=== PATIENT | male | born 1955 | race Caucasian/White ===

== ENCOUNTER 2018-05-16 21:20 | Emergency (ER) | payer OTHER ==
[2018-05-16] MEDS ORDERED: TRANDATE 20 MG/5 ML SYRINGE IV ONE ×2 (21:52→22:02)
--- NOTE | 2018-05-16 21:52 | ERPHSYRPT ---
- History of Present Illness Time Seen by Provider: 05/16/18 21:51 Source: patient Exam Limitations: no limitations Patient Subjective Stated Complaint: pt reports high blood pressure, states this evening it read 188/98. pt reports headache as well. pt denies pain. pt also reports some burning with urination for approx one week. Triage Nursing Assessment: pt is aox3, pupils perrl, afebrile, resps easy and non labored, radial pulses strong and equal, pt transfers to cot with slow gait , generalized pain to the head that is dull in nature. cap refill < 3 seconds, pt skin pink warm dry. slight edema noted to the LLE, non pitting. Physician History: pt reports high blood pressure, states this evening it read 188/98. pt reports headache as well. pt denies pain. pt also reports some burning with urination for approx one week. generalized pain to the head that is dull in nature Timing/Duration: day(s) Activities at Onset: none Nitro Today/Relief: no nitro taken today Aspirin Treatment Today: no aspirin today Associated Symptoms: headaches Prior Chest Pain/Cardiac Workup: recently seen/treated (by digital marketing consultant, lisinopril was added.) Allergies/Adverse Reactions: Sulfa (Sulfonamide Antibiotics) Allergy (Intermediate, Verified 05/16/18 21:39) Hives Home Medications: Amiodarone HCl 200 mg [Cordarone 200 MG] 200 mg PO BID 04/18/16 [History] Aspirin 81 gm Chew [Baby Aspirin 81 mg Chew] 81 mg PO DAILY 04/18/16 [ History] Atorvastatin Calcium [Lipitor] 80 mg PO DAILY 04/18/16 [History] Bumetanide 1 mg [Bumex 1 mg] 1 mg PO BID 04/18/16 [History] Ferrous Sulfate 325 mg [Feosol 325 mg] 325 mg PO BID 04/18/16 [History] Metolazone 2.5 mg [Zaroxolyn 2.5 MG] 2.5 mg PO UD 04/18/16 [History] Metoprolol Succinate [Toprol Xl] 50 mg PO BID 04/18/16 [History] Omeprazole 20 MG [Prilosec 20 mg] 20 mg PO DAILY 04/18/16 [History] Potassium Chloride 10 Meq Tab* [Klor Con 10 MEQ] 10 meq PO BID 04/18/16 [ History] Warfarin Sodium 2 mg [Coumadin 2 MG] 2 mg PO UD 04/18/16 [History] Hx Tetanus, Diphtheria Vaccination/Date Given: Yes Hx Influenza Vaccination/Date Given: Yes Hx Pneumococcal Vaccination/Date Given: No Immunizations Up to Date: Yes - Review of Systems Constitutional: No Fever, No Chills Eyes: No Symptoms Ears, Nose, & Throat: No Symptoms Respiratory: No Cough, No Dyspnea Cardiac: No Chest Pain, No Edema, No Syncope Abdominal/Gastrointestinal: No Abdominal Pain, No Nausea, No Vomiting, No Diarrhea Genitourinary Symptoms: No Dysuria Musculoskeletal: No Back Pain, No Neck Pain Skin: No Rash Neurological: Headache, No Dizziness, No Focal Weakness, No Sensory Changes Psychological: No Symptoms Endocrine: No Symptoms All Other Systems: Reviewed and Negative - Past Medical History Pertinent Past Medical History: Yes Cardiac History: Arrhythmia, Coronary Artery Disease, Hypertension, Myocardial Infarction (AR) Endocrine Medical History: No Pertinent History Musculoskeletal History: Osteoarthritis GI Medical History: Other - Past Surgical History Past Surgical History: Yes Cardiac: CABG Other Surgical History: tonsillectomy - Social History Smoking Status: Former smoker Exposure to second hand smoke: No Drug Use: none Patient Lives Alone: Yes - Nursing Vital Signs Nursing Vital Signs: Initial Vital Signs Temperature 98.4 F 05/16/18 21:26 Pulse Rate 63 05/16/18 21:26 Respiratory Rate 20 05/16/18 21:26 Blood Pressure 191/77 05/16/18 21:26 O2 Sat by Pulse Oximetry 99 05/16/18 21:26 Pain Scale Pain Intensity 4 - Physical Exam General Appearance: no apparent distress, alert Eye Exam: PERRL/EOMI, eyes nml inspection Ears, Nose, Throat Exam: normal ENT inspection, moist mucous membranes Neck Exam: normal inspection, non-tender, supple Respiratory Exam: normal breath sounds, lungs clear, No respiratory distress Cardiovascular Exam: regular rate/rhythm, normal heart sounds, No edema Gastrointestinal/Abdomen Exam: soft, No tenderness, No mass Back Exam: normal inspection, No CVA tenderness, No vertebral tenderness Extremity Exam: normal inspection, normal range of motion Neurologic Exam: alert, oriented x 3, cooperative, normal mood/affect, sensation nml, No motor deficits, No sensory deficit Skin Exam: normal color, warm, dry Lymphatic Exam: No adenopathy SpO2: 99 - Course Nursing assessment & vital signs reviewed: Yes EKG Interpreted by Me: Right Bundle Branch Block - Radiology Exams Chest X-ray Interpretation: Reviewed by me Ordered Tests: Active Orders 24 hr Category Date Time Status Medical Director/Head Team Physician STAT Care 05/16/18 21:53 Active EKG-ER Only STAT Care 05/16/18 21:40 Active IV Insertion STAT Care 05/16/18 21:40 Active CMP Stat Lab 05/16/18 21:30 Completed NT PRO BNP Stat Lab 05/16/18 21:30 Completed PROTIME WITH INR Stat Lab 05/16/18 21:30 Completed TROPONIN Q3H Lab 05/16/18 21:30 Completed TROPONIN Q3H Lab 05/17/18 01:00 Ordered TROPONIN Q3H Lab 05/17/18 04:00 Ordered TROPONIN Q3H Lab 05/17/18 07:00 Ordered TROPONIN Q3H Lab 05/17/18 10:00 Ordered UA W/RFX UR CULTURE Stat Lab 05/16/18 23:35 Completed Medication Summary Generic Name Dose Route Start Last Admin Trade Name Freq PRN Reason Stop Dose Admin Sodium Chloride 1,000 mls @ 50 mls/hr 05/16/18 22:00 05/16/18 22:05 Sodium Chloride 0.9% 1000 Ml IV 06/15/18 21:59 50 mls/hr .Q20H WINNIE Administration Discontinued Medications Generic Name Dose Route Start Last Admin Trade Name Freq PRN Reason Stop Dose Admin Labetalol HCl 10 mg 05/16/18 21:52 05/16/18 23:24 Trandate 20 Mg/5 Ml Syringe IV 05/16/18 21:53 10 mg STAT ONE Administration Labetalol HCl Confirm 05/16/18 22:02 Trandate 20 Mg/5 Ml Syringe Administered 05/16/18 22:03 Dose 20 mg IV .STK-MED ONE Lab/Rad Data: Laboratory Result Diagrams 05/16/18 21:30 Laboratory Results 05/16/18 05/16/18 05/16/18 Range/Units 23:35 21:30 21:30 PT 20.9 H (8.83-12.87) SECONDS INR 1.79 (0.8-3.0) Sodium (137-145) mmol/L Potassium (3.5-5.1) mmol/L Chloride (98-107) mmol/L Carbon Dioxide (22-30) mmol/L Anion Gap (5-15) MEQ/L BUN (9-20) mg/dL Creatinine (0.66-1.25) mg/dL Estimated GFR ML/MIN Glucose (74-106) mg/dL Calcium (8.4-10.2) mg/dL Total Bilirubin (0.2-1.3) mg/dL AST (17-59) U/L ALT (0-50) U/L Alkaline Phosphatase (38-126) U/L Troponin I < 0.012 (0.000-0.034) ng/mL NT-Pro-B Natriuret Pep (0-900) pg/mL Serum Total Protein (6.3-8.2) g/dL Albumin (3.5-5.0) g/dL Urine Color STRAW (YELLOW) Urine Appearance CLEAR (CLEAR) Urine pH 6.0 (5-6) Ur Specific [place] 1.004 (1.005-1.025) Urine Protein NEGATIVE (Negative) Urine Ketones TRACE (NEGATIVE) Urine Blood NEGATIVE (0-5) Oc/ul Urine Nitrite NEGATIVE (NEGATIVE) Urine Bilirubin NEGATIVE (NEGATIVE) Urine Urobilinogen NEGATIVE (0-1) mg/dL Ur Leukocyte Esterase NEGATIVE (NEGATIVE) Urine WBC (Auto) NONE (0-5) /HPF Urine RBC (Auto) NONE (0-2) /HPF Urine Culture Reflexed NO (NO) Urine Glucose NEGATIVE (NEGATIVE) mg/dL 05/16/18 Range/Units 21:30 PT (8.83-12.87) SECONDS INR (0.8-3.0) Sodium 121 L (137-145) mmol/L Potassium 3.7 (3.5-5.1) mmol/L Chloride 83 L (98-107) mmol/L Carbon Dioxide 23 (22-30) mmol/L Anion Gap 18.7 H (5-15) MEQ/L BUN 15 (9-20) mg/dL Creatinine 0.88 (0.66-1.25) mg/dL Estimated GFR > 60.0 ML/MIN Glucose 91 (74-106) mg/dL Calcium 8.8 (8.4-10.2) mg/dL Total Bilirubin 1.30 (0.2-1.3) mg/dL AST 22 (17-59) U/L ALT 18 (0-50) U/L Alkaline Phosphatase 108 (38-126) U/L Troponin I (0.000-0.034) ng/mL NT-Pro-B Natriuret Pep 514 (0-900) pg/mL Serum Total Protein 7.3 (6.3-8.2) g/dL Albumin 3.9 (3.5-5.0) g/dL Urine Color (YELLOW) Urine Appearance (CLEAR) Urine pH (5-6) Ur Specific [place] (1.005-1.025) Urine Protein (Negative) Urine Ketones (NEGATIVE) Urine Blood (0-5) Oc/ul Urine Nitrite (NEGATIVE) Urine Bilirubin (NEGATIVE) Urine Urobilinogen (0-1) mg/dL Ur Leukocyte Esterase (NEGATIVE) Urine WBC (Auto) (0-5) /HPF Urine RBC (Auto) (0-2) /HPF Urine Culture Reflexed (NO) Urine Glucose (NEGATIVE) mg/dL - Progress Progress: improved Air Movement: good Blood Culture(s) Obtained: No Antibiotics given: No Counseled pt/family regarding: lab results, diagnosis, need for follow-up - Departure Time of Disposition: 23:55 Departure Disposition: Home Clinical Impression: Chronic atrial fibrillation, Hypertension not at goal Condition: Stable Critical Care Time: Yes Critical Care Time(excluding separately billable procedures): 30-74 minutes Referrals: LUIS A MONTEIRO [Primary Care Provider] - Instructions: Malignant Hypertension (DC) Additional Instructions: Please take, lisinopril 10 mg twice a day, as well as take one goes. Duyight after, you reach home. Continue her metoprolol twice a day. Continue her other medication as prescribed. Followup with your primary care physician on Saturday and digital marketing consultant, next week. Please follow the instructions given to you. Please take your medication as prescribed if given. If symptoms recur or get worse, come back to the emergency room if you cannot reach your primary care physician, or call your primary care physician for an appointment. Again if your symptoms get worse, come back to the emergency room. Thanks for visiting emergency room, and let us take care of you.
[2018-05-16] MEDS ORDERED: Sodium Chloride 0.9% 1000 ML 1,000 ML IV SCH (22:00)
[2018-05-16] MEDS ORDERED: Sodium Chloride 0.9% 1000 ML 1,000 ML ONE (22:02)
[2018-05-16 22:23] LABS: INR 1.79 (0.8-3.0); PROTIME 20.9 SECONDS (8.83-12.87)
[2018-05-16 22:26] LABS: ALBUMIN 3.9 g/dL (3.5-5.0); ALKALINE PHOSPHATASE 108 U/L (38-126); ANION GAP 18.7 MEQ/L (5-15); BLOOD UREA NITROGEN 15 mg/dL (9-20); CHLORIDE 83 mmol/L (98-107); Calcium 8.8 mg/dL (8.4-10.2); Carbon Dioxide 23 mmol/L (22-30); Creatinine 1 0.88 mg/dL (0.66-1.25); Glucose 91 mg/dL (74-106); NT PRO BNP 514 pg/mL (0-900); Potassium 3.7 mmol/L (3.5-5.1); SGOT/AST 22 U/L (17-59); SGPT/ALT 18 U/L (0-50); SODIUM 121 mmol/L (137-145); Total Protein 7.3 g/dL (6.3-8.2)
[2018-05-16 23:46] LABS: Appearance CLEAR (CLEAR); Bilirubin NEGATIVE (NEGATIVE); Blood NEGATIVE Ery/ul (0-5); Glucose NEGATIVE (NEGATIVE); Ketones TRACE (NEGATIVE); Leukocyte Esterase NEGATIVE (NEGATIVE); Nitrite NEGATIVE (NEGATIVE); Protein,Urine Dip NEGATIVE (Negative); Specific Gravity 1.004 (1.005-1.025); Urobilinogen NEGATIVE mg/dL (0-1)
[2018-05-17 00:32] VITALS: BP 137/73; PULSE 68; O2SAT 98
== END 2018-05-17 00:31 | disposition home or self-care (01) ==
LOC: ED 21:20
DX: I48.2 Chronic atrial fibrillation (principal); I10 Essential (primary) hypertension; Z79.01 Long term (current) use of anticoagulants; Z79.899 Other long term (current) drug therapy; I25.10 Atherosclerotic heart disease of native coronary artery without angina pectoris; I25.2 Old myocardial infarction; M19.90 Unspecified osteoarthritis, unspecified site
CPT/HCPCS: 36000; 36415; 80053; 81001; 83880; 84484; 85610; 93005; 93041; 96360; 96361; 96374; 99284